=== PATIENT | male | born 1990 | race Caucasian/White ===

== ENCOUNTER 2018-08-19 16:48 | Emergency (ER) | payer OTHER ==
[2018-08-19 16:52] VITALS: BP 140/87; PULSE 104; RESP 18; TEMP 98
[2018-08-19] MEDS ORDERED: LIDOCAINE 1% INJ 10MG/ML (20 ML MDV) SQ ONE (16:59)
[2018-08-19] MEDS ORDERED: DIPH,PERTUS(ACELL)TETVAC-LF 0.5 ML VIAL IM ONE (16:59)
--- NOTE | 2018-08-19 17:08 | ED ---
General Adult HPI - General Chief complaint: Wound/Laceration Stated complaint: hand lac Time Seen by Provider: 08/19/18 16:56 Source: patient, RN notes reviewed Mode of arrival: ambulatory Limitations: no limitations - History of Present Illness Initial comments: 28-year-old male presents to the emergency department for a chief clinic laceration of the left hand. Patient states he was trying to cut something up and when he accidentally cut his hand. Denies any difficulty moving any digits in his hand. Is unsure of his tetanus is up-to-date. Patient is no other complaints at this time. No other injuries.Patient has no other complaints at this time including shortness of breath, chest pain, abdominal pain, nausea or vomiting, headache, or visual changes. - Related Data Allergies Allergy/AdvReac Type Severity Reaction Status Date / Time No Known Allergies Allergy Verified 08/19/18 16:52 Review of Systems ROS Statement: Those systems with pertinent positive or pertinent negative responses have been documented in the HPI. ROS Other: All systems not noted in ROS Statement are negative. Past Medical History Past Medical History: No Reported History History of Any Multi-Drug Resistant Organisms: None Reported Past Surgical History: Orthopedic Surgery Past Psychological History: No Psychological Hx Reported Smoking Status: Current every day smoker Past Alcohol Use History: None Reported Past Drug Use History: None Reported General Exam Limitations: no limitations General appearance: alert, in no apparent distress Head exam: Present: atraumatic, normocephalic, normal inspection Eye exam: Present: normal appearance, PERRL, EOMI. Absent: scleral icterus, conjunctival injection, periorbital swelling ENT exam: Present: normal exam, mucous membranes moist Neck exam: Present: normal inspection, full ROM. Absent: tenderness, meningismus, lymphadenopathy Respiratory exam: Present: normal lung sounds bilaterally. Absent: respiratory distress, wheezes, rales, rhonchi, stridor Cardiovascular Exam: Present: regular rate, normal rhythm, normal heart sounds. Absent: systolic murmur, diastolic murmur, rubs, gallop, clicks Extremities exam: Present: full ROM (Full Range motion of the left hand including all digits of the left hand. Full strength in the left hand and all digits of the left hand), normal capillary refill (Capillary refill less than 2 seconds, radial pulse 2+ and left upper extremity), other (Patient has a 3 cm laceration of the dorsal left hand between the first and second metacarpals. No evidence for foreign body. No evidence for deep structure injury. I) Course Vital Signs 08/19/18 16:50 Temperature 98.0 F Pulse Rate 104 H Respiratory 18 Rate Blood Pressure 140/87 O2 Sat by Pulse 98 Oximetry Procedures - Laceration Laceration #1 Consent Obtained: verbal consent Indication: laceration Site: hand Size (cm): 3 Description: linear Depth: simple, single layer Anesthetic Used: lidocaine 1% Anesthesia Technique: local infiltration Amount (mls): 4 Pre-repair: wound explored, irrigated extensively Type of Sutures: nylon Size of Sutures: 5-0 Number of Sutures: 5 Technique: simple, interrupted Patient Tolerated Procedure: well, no complications Medical Decision Making - Medical Decision Making 28-year-old male presents for left hand laceration after cutting with a knife. Laceration is about 3 cm in length on the dorsum of the first web space in the left hand. Full range of motion of all digits. No evidence for deep structure injury. No evidence of foreign body. Wound was cleaned thoroughly with saline pressure irrigation. Sutured with 5 simple interrupted sutures. Bleeding controlled at this time. X-ray negative for fracture or foreign body. At this time patient will be discharged home. Will monitor for signs infection which were discussed. Will return in 7-10 days for suture removal. Disposition Clinical Impression: Laceration Disposition: HOME SELF-CARE Condition: Good Instructions (If sedation given, give patient instructions): Laceration (ED), Care For Your Stitches (ED) Additional Instructions: Please follow up with primary care in 1-2 days. Please return in 7-10 days for suture removal. Return earlier if he notices any signs of infection such as spreading or streaking redness drainage or any other concerns. Is patient prescribed a controlled substance at d/c from ED?: No Referrals: Andi Young MD [Primary Care Provider] - 1-2 days Time of Disposition: 17:33
--- NOTE | 2018-08-19 17:15 | XR ---
EXAMINATION TYPE: XR hand complete LT DATE OF EXAM: 08/19/2018 CLINICAL HISTORY: Laceration injury with pain. TECHNIQUE: Frontal, lateral and oblique images of the left hand are obtained. COMPARISON: None. FINDINGS: There is no acute fracture/dislocation evident in the left hand. The joint spaces in the l eft hand appear within normal limits. The overlying soft tissue appears unremarkable without radiode nse foreign body seen. IMPRESSION: There is no acute fracture or dislocation in the left hand.
== END 2018-08-19 18:59 | disposition home or self-care (01) ==
LOC: EC 16:48
DX: S61.412A Laceration without foreign body of left hand, initial encounter (principal); F17.200 Nicotine dependence, unspecified, uncomplicated; Z23 Encounter for immunization; W26.0XXA Contact with knife, initial encounter; Y93.89 Activity, other specified; Y92.009 Unspecified place in unspecified non-institutional (private) residence as the place of occurrence of the external cause
CPT/HCPCS: 73130; 90715; 99283; 12002; 90471; J2001

== ENCOUNTER → 2024-02-29 | Outpatient (CLI) | payer BC ==
--- NOTE | 2024-02-29 22:55 | US ---
EXAMINATION TYPE: US scrotum with doppler. DATE OF EXAM: 02/29/2024 COMPARISON: NONE CLINICAL INDICATION: Male, 34 years old with history of N50.819 TESTICULAR PAIN R10.30 LOWER ABDOMINA L MARTI; Palpable right teste. TECHNIQUE: Grayscale, color Doppler and spectral Doppler imaging of the scrotum. FINDINGS: EXAM MEASUREMENTS: TESTICLES: Right Testicle: 4.8 x 3.8 x 3.0 cm Left Testicle: 4.3 x 3.6 x 2.6 cm EPIDIDYMIS HEAD: Right Epididymis: 1.0 x 0.6 x 0.7 cm Left Epididymis: 0.7 x 1.0 x 0.9 cm Doppler performed to assess for testicular vascularity; good bilateral color flow and spectral wavefo roula are seen. There is no evidence of testicular torsion. Presence of hydroceles: Right Presence of varicoceles: No Area of concern scanned at right teste- Epididymal head seen. IMPRESSION: 1. No suspicious acute ultrasound abnormality. 2. The epididymal head is at the palpable region on the right. 3. Small right hydrocele [facility], , 02/29/2024 10:53 PM
--- NOTE | 2024-02-29 23:41 | US ---
EXAMINATION TYPE: US groin RT DATE OF EXAM: 02/29/2024 COMPARISON: NONE CLINICAL INDICATION: Male, 34 years old with history of N50.819 TESTICULAR PAIN R10.30 LOWER ABDOMINA L MARTI; RLQ pain. 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 TECHNIQUE: Multiple sonographic images taken at right groin. FINDINGS: Right groin scanned. No sonographic evidence of hernia, masses or lesions seen. Valsalva performed. IMPRESSION: 1. No evidence of right inguinal hernia by ultrasound. [facility], , 02/29/2024 11:38 PM
== END | disposition home or self-care (01) ==
LOC: RADUSWWP 14:57
PROVIDERS: ATTEND Family Medicine
DX: N43.3 Hydrocele, unspecified (principal); N50.811 Right testicular pain; R10.30 Lower abdominal pain, unspecified
CPT/HCPCS: 76870; 93975

== ENCOUNTER → 2024-06-08 | Outpatient (CLI) | payer BC ==
--- NOTE | 2024-06-08 10:22 | US ---
EXAMINATION TYPE: US abdomen complete DATE OF EXAM: 06/08/2024 COMPARISON: NONE CLINICAL INDICATION: Male, 34 years old with history of R10.33 PERIUMBILICAL PAIN; Abdomen pain TECHNIQUE: Grayscale and color Doppler imaging of the abdomen was performed. FINDINGS: EXAM MEASUREMENTS: Liver Length: 16.2 cm Gallbladder Wall: 0.2 cm CBD: 0.4 cm Spleen: 10.6 cm Right Kidney: 10.1 x 4.8 x 5.1 cm Left Kidney: 11.3 x 5.8 x 5.1 cm Pancreas: obscured by overlying midline bowel gas Liver: wnl Gallbladder: wnl Evidence for sonographic Wolfe's sign: no CBD: visualized portions wnl, limited by overlying bowel gas Spleen: wnl Right Kidney: 1.9cm hypoechoic area inferior pole, 0.8cm echogenic focus inferior pole Left Kidney: 1.3cm hypoechoic area inferior pole, 0.4cm echogenic focus inferior pole Upper IVC: wnl Abd Aorta: proximal portion obscured by overlying midline bowel gas, mid and distal portions wnl The liver is homogenous. The intrahepatic portion of the IVC and proximal abdominal aorta are within normal limits. There is no evidence of cholelithiasis. Common bile duct is unremarkable. The visu alized portions of the pancreas are homogenous. The spleen is unremarkable. Kidneys are symmetric a nd free of hydronephrosis. No renal solid lesions are seen. IMPRESSION: 1. No evidence for acute abdominal process. 2. Bilateral renal cortical cysts. 3. Bilateral nonobstructing calculi versus prominent renal sinus fat. [facility], , 06/08/2024 10:19 AM
== END | disposition home or self-care (01) ==
LOC: RADUSWWP 08:00
PROVIDERS: ATTEND Family Medicine
DX: N28.1 Cyst of kidney, acquired (principal); R10.33 Periumbilical pain
CPT/HCPCS: 76700

== ENCOUNTER 2024-10-04 16:58 | Emergency (ER) | payer BC, OTHER ==
--- NOTE | 2024-10-04 17:18 | ED ---
Lower Extremity Injury HPI - General Chief Complaint: Extremity Injury, Lower Stated Complaint: [facility]-L foot injury Time Seen by Provider: 10/04/24 17:05 Source: patient Mode of arrival: ambulatory Limitations: no limitations - History of Present Illness Initial Comments: 34-year-old male presenting with a chief complaint of left ankle injury. Patient was at work when a cart full of soda hit the medial malleolus and surrounding area. He is having pain with weightbearing and pain with range of motion. He does have a remote history of previous injury and had some pins in his foot. No numbness or tingling. - Related Data Home Medications Medication Instructions Recorded Confirmed Naproxen 500 mg PO DAILY 08/19/18 08/19/18 Allergies Allergy/AdvReac Type Severity Reaction Status Date / Time No Known Allergies Allergy Verified 08/19/18 17:30 Review of Systems ROS Statement: Those systems with pertinent positive or pertinent negative responses have been documented in the HPI. ROS Other: All systems not noted in ROS Statement are negative. Past Medical History Past Medical History: No Reported History History of Any Multi-Drug Resistant Organisms: None Reported Past Surgical History: Orthopedic Surgery Past Psychological History: No Psychological Hx Reported Past Alcohol Use History: None Reported Past Drug Use History: None Reported General Exam Limitations: no limitations General appearance: alert, in no apparent distress Head exam: Present: atraumatic, normocephalic, normal inspection Eye exam: Present: normal appearance, EOMI Neck exam: Present: normal inspection. Absent: meningismus Respiratory exam: Absent: respiratory distress Cardiovascular Exam: Present: regular rate Left Ankle exam: Present: normal inspection, tenderness. Absent: full ROM, swelling, deformity Neurovascular tendon exam: Present: no vascular compromise Neurological exam: Present: alert, oriented X3 Psychiatric exam: Present: normal affect, normal mood Skin exam: Present: warm, dry, normal color Course Vital Signs 10/04/24 17:02 Temperature 97.9 F Pulse Rate 100 Respiratory 20 Rate Blood Pressure 131/78 O2 Sat by Pulse 98 Oximetry Medical Decision Making - Medical Decision Making Was pt. sent in by a medical professional or institution (, PA, NUB CARD TENDER, urgent care, hospital, or jail...) When possible be specific @ -No Did you speak to anyone other than the patient for history (EMS, parent, family, police, friend...)? What history was obtained from this source @ -No Did you review nursing and triage notes (agree or disagree)? Why? @ -I reviewed and agree with nursing and triage notes Were old charts reviewed (outside hosp., previous admission, EMS record, old EKG, old radiological studies, urgent care reports/EKG's, jail records)? Report findings @ -No old charts were reviewed Differential Diagnosis (chest pain, altered mental status, abdominal pain women, abdominal pain men, vaginal bleeding, weakness, fever, dyspnea, syncope, headache, dizziness, GI bleed, back pain, seizure, CVA, palpatations, mental health, musculoskeletal)? @ -Differential Musculoskeletal Muscular strain, contusion, ligament sprain, fracture, arthritis, septic arthritis, bursitis, cellulitis, muscle spasm, nerve compression, DVT, arterial occlusion, herpes zoster, electrolyte abnormality, tumor.... This is not meant to be in all inclusive list EKG interpreted by me (3pts min.). @ -As above X-rays interpreted by me (1pt min.). @ -X-ray shows no evidence for acute fracture. Postsurgical changes from fixation hardware involving the left distal tibia. Hardware appears intact. Remote healed distal left fibular fracture CT interpreted by me (1pt min.). @ -None done U/S interpreted by me (1pt. min.). @ -None done What testing was considered but not performed or refused? (CT, X-rays, U/S, labs)? Why? @ -None What meds were considered but not given or refused? Why? @ -None Did you discuss the management of the patient with other professionals (professionals i.e. , PA, NUB CARD TENDER, lab, RT, psych nurse, social service technician, box blank machine operator helper, teacher, community service patrol officer, high risk case manager)? Give summary @ -No Was smoking cessation discussed for >3mins.? @ -No Was critical care preformed (if so, how long)? @ -No Were there social determinants of health that impacted care today? How? (Homelessness, low income, unemployed, alcoholism, drug addiction, transportation, low edu. Level, literacy, decrease access to med. care, care home, rehab)? @ -No Was there de-escalation of care discussed even if they declined (Discuss DNR or withdrawal of care, Hospice)? DNR status @ -No What co-morbidities impacted this encounter? (DM, HTN, Smoking, COPD, CAD, Cancer, CVA, ARF, Chemo, Hep., AIDS, mental health diagnosis, sleep apnea, morbid obesity)? @ -None Was patient admitted / discharged? Hospital course, mention meds given and route, prescriptions, significant lab abnormalities, going to OR and other pertinent info. @ -34-year-old male presenting with chief complaint of left ankle injury while at work today. X-ray negative for acute fracture. Patient is educated on today's findings and supportive management at home. Follow-up with PCP. Report back to ER with any new or worsening symptoms. Discussed return parameters and answered all questions. Patient conveyed verbal understanding and agreed to the plan. My attending is Dr. Louise Undiagnosed new problem with uncertain prognosis? @ -No Drug Therapy requiring intensive monitoring for toxicity (Heparin, Nitro, Insulin, Cardizem)? @ -No Were any procedures done? @ -No Diagnosis/symptom? @ -Ankle sprain Acute, or Chronic, or Acute on Chronic? @ -Acute Uncomplicated (without systemic symptoms) or Complicated (systemic symptoms)? @ -Uncomplicated Side effects of treatment? @ -No Exacerbation, Progression, or Severe Exacerbation? @ -No Poses a threat to life or bodily function? How? (Chest pain, [place], [place], pneumonia, PE, COPD, DKA, ARF, appy, cholecystitis, CVA, Diverticulitis, Homicidal, Suicidal, threat to staff... and all critical care pts) @ -Unlikely Disposition Clinical Impression: Ankle sprain Disposition: HOME SELF-CARE Condition: Good Instructions (If sedation given, give patient instructions): Ankle Sprain (ED) Additional Instructions: Follow-up with PCP. Report back to ER with any new or worsening symptoms. Take Motrin Tylenol as needed for pain control. Rest, ice, compress, elevate the ankle. Is patient prescribed a controlled substance at d/c from ED?: No Referrals: Andi Young MD [Primary Care Provider] - 1-2 days Time of Disposition: 18:03
[2024-10-04] MEDS: ACETAMINOPHEN TAB 325 MG TAB PO STA (17:22)
[2024-10-04] MEDS: IBUPROFEN 600 MG TAB PO STA (17:22)
--- NOTE | 2024-10-04 17:43 | XR ---
EXAMINATION TYPE: XR ankle complete LT DATE OF EXAM: 10/04/2024 COMPARISON: NONE HISTORY: Pain, injury TECHNIQUE: 3 views of the left ankle are submitted for evaluation. FINDINGS: There is no evidence for acute fracture or dislocation. Fixation changes with intramedullar y andi and 2 screws involving the distal left tibia. Hardware appears intact with appropriate alignmen t. No periprosthetic lucency identified. Remote healed fracture of the distal left fibula. Ankle mort ise is intact. Soft tissues are within normal limits. IMPRESSION: 1. No evidence for acute fracture. 2. Postsurgical changes from fixation hardware involving the distal left tibia. Hardware appears inta ct. 3. Remote healed distal left fibular fracture. [facility], , 10/04/2024 5:41 PM
[2024-10-04 18:15] VITALS: BP 128/76; PULSE 90; RESP 18; TEMP 98
== END 2024-10-04 19:06 | disposition home or self-care (01) ==
LOC: EC 16:58
DX: S93.401A Sprain of unspecified ligament of right ankle, initial encounter (principal); W22.8XXA Striking against or struck by other objects, initial encounter
CPT/HCPCS: 99283